=== PATIENT | male | born 1985 | race Two or more races ===

== ENCOUNTER 2024-01-18 17:48 | Emergency (ER) | payer MEDICAID, SELFPAY ==
[2024-01-18 18:11] VITALS: BP 134/93; PULSE 155; RESP 18; TEMP 37.7; O2SAT 97; BMI 32.1
--- NOTE | 2024-01-18 18:11 | EKG_ITS ---
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
--- NOTE | 2024-01-18 18:24 | XR_ITS ---
Examination: PA lateral chest 2 views TECHNIQUE: Upright PA lateral chest 2 views Exam date and time: January 18, 2024 at 1845 hours INDICATIONS: Vertigo today FINDINGS: Normal heart size Lungs are clear. The osseous structures are intact IMPRESSION: No active disease
--- NOTE | 2024-01-18 18:24 | PD.EDRME ---
Rapid Medical Screening Exam RME Arrival date/time: 01/18/24 17:48 38-year-old male with reported past medical history of kidney disease, liver disease, and cardiac problem presents to the emergency department complaining of multiple complaints dizziness, headache, and left calf pain that is been ongoing for several days Chief Complaint: Ear Time Seen by Provider: 01/18/24 18:09 Vital signs: Vital Signs Temperature 99.9 F 01/18/24 18:11 Pulse Rate 155 H 01/18/24 18:11 Respiratory Rate 18 01/18/24 18:11 Blood Pressure 134/93 H 01/18/24 18:11 Pulse Oximetry (%) 97 01/18/24 18:11 Oxygen Delivery Method Room Air 01/18/24 18:11 Vital signs reviewed by provider: Yes
[2024-01-18 18:57] LABS: Collection Type, Urine Clean Catch
[2024-01-18 19:00] LABS: Basophils # (Auto) 0.1 Thou/mm3 (0.0-0.2); Basophils % (Auto) 0 % (0-2.5); Eosinophils # (Auto) 0.1 Thou/mm3 (0.0-0.5); Eosinophils % (Auto) 1 % (0-10); Hematocrit 46.7 % (41.0-53.0); Hemoglobin 15.8 g/dL (13.5-16.0); Immature Granulocytes % (Auto) 0 % (0-0); Immature Granulocytes Auto 0.07 Thou/mm3 (0.00-0.00); Lymphocytes # (Auto) 2.2 Thou/mm3 (1.0-4.8); Lymphocytes % (Auto) 13 % (10-50); Mean Corpuscular HGB Conc 33.8 g/dl (31.0-37.0); Mean Corpuscular Hemoglobin 29.9 pg (25.0-35.0); Mean Corpuscular Volume 88 fL (80-100); Monocytes # (Auto) 0.9 Thou/mm3 (0.0-0.8); Monocytes % (Auto) 6 % (0-12); Neutrophils # (Auto) 13.3 Thou/mm3 (1.8-7.7); Neutrophils % (Auto) 80 % (37-80); Nucleated Red Blood Cell % 0 /100 WBC (0); Platelet Count 254 Thou/mm3 (140-440); RDW Standard Deviation 43.6 fL (35.1-43.9); Red Blood Count 5.28 Miln/mm3 (4.50-5.90); White Blood Count 16.8 Thou/mm3 (3.8-10.6)
[2024-01-18 19:09] LABS: Bacteria,Urine Rare; Bilirubin,Urine Negative (Negative); Blood,Urine Negative (Negative); Clarity,Urine Clear (Clear/Hazy); Color,Urine Lt-Yellow (Lt Yel-Yel); Culture Indicated,Urine Not Indicated; Glucose, Urine 4+ (Negative); Ketones,Urine Negative (Negative); Leukocyte Esterase,Urine Negative (Negative); Nitrite,Urine Negative (Negative); Protein,Urine Negative (Neg - Trace); RBC,Urine 2 /hpf (0-3); Specific Gravity,Urine 1.029 (1.001-1.035); Squamous Epithelial Cell,Urine < 1 /hpf (0-5); Urobilinogen,Urine Negative mg/dL (0.0-1.0); WBC,Urine 1 /hpf (0-5)
[2024-01-18 19:17] LABS: INR 0.9 (0.9-1.3); Partial Thromboplastin Time 26.2 Seconds (22.0-36.0); Prothrombin Time 10.4 Seconds (9.0-12.2)
[2024-01-18 19:20] LABS: B-Type Natriuretic Peptide < 20 pg/mL (0-100)
[2024-01-18 19:20] LABS: Amphetamine/Methamp Scrn,U Negative (Negative); Barbiturate Screen,Urine Negative (Negative); Benzodiazepines Screen,Urine Negative (Negative); Benzoylecgonine Screen, Ur Negative (Negative); Fentanyl Screen,Urine Negative (Negative); Opiate Screen,Urine Negative (Negative); THC Screen,Urine Negative (Negative)
[2024-01-18 19:22] LABS: Alanine Aminotransferase 26 U/L (10-49); Albumin, Serum 4.5 gm/dL (3.5-5.0); Albumin/Globulin Ratio 1.8 (1.2-2.2); Alkaline Phosphatase 210 U/L (46-116); Anion Gap 7 (7-16); Aspartate Amino Transferase 20 U/L (0-34); BUN/Creatinine Ratio 13 Ratio (12-20); Bilirubin,Total 0.3 mg/dL (0.3-1.2); Blood Urea Nitrogen 10 mg/dL (9-23); Calcium 10.1 mg/dL (8.3-10.6); Calcium (Corrected) 10.1 mg/dL (8.5-10.1); Carbon Dioxide 26.8 mMol/L (20.0-31.0); Chloride 102 mMol/L (98-107); Creatinine (Component) 0.8 mg/dL (0.6-1.3); Estimated Creatinine Clearance 136.2 mL/min (>60); Globulin 2.5 gm/dL (2.3-3.5); Glucose 252 mg/dL (74-106); Osmolality,Calculated 279 (275-295); Potassium 4.6 mMol/L (3.4-5.1); Sodium 136 mMol/L (136-145); Troponin I < 0.002 ng/mL (0.0-0.045); eGFR > 60 See Note
--- NOTE | 2024-01-18 20:09 | XR_ITS ---
Examination: CT brain head without contrast. 2-D sagittal coronal reconstructions Date and time of exam:January 18, 2024 2048 hrs. Indications: Vertigo dizziness episodes today CTDI: vol (mGy):53.3 DLP: (mGycm):1056 Technique: Multiple CT axial sections of the brain have been obtained, 5 mm slice thickness. Contrast has not been administered. 2-D sagittal, coronal reconstructions have been obtained Low dose protocols were performed. One or more of the following dose reduction techniques were used; automated exposure control, adjustment of the mA and/or KV according to patient size, use of iterative reconstruction technique. Findings: No significant ventricular enlargement. Intra-axial or extra-axial hemorrhage density is not seen. No mass effect or midline shift Basal cisterns are not remarkable. Fourth ventricle is midline. Cranial vault intact. Impression: Negative for acute hemorrhage, mass effect or midline shift Advise clinical correlation follow-up accordingly
[2024-01-18 20:35] VITALS: BP 134/93; PULSE 155
[2024-01-18] MEDS: METOPROLOL TARTRATE 25 MG TABLET 50 MG PO (20:35)
[2024-01-18 20:47] LABS: D-Dimer < 250 ng/mL (<600)
[2024-01-18 21:11] VITALS: BP 158/96; PULSE 134; RESP 18; TEMP 37.6; O2SAT 99
--- NOTE | 2024-01-18 21:54 | PD.EDFEVER ---
ED Fever RME/HPI General Chief Complaint: Ear Stated Complaint: b/l ear ringinig, feels like room spinning Time Seen by Provider: 01/18/24 18:09 Arrival date/time: 01/18/24 17:48 RME / HPI RME / HPI Narrative: 01/18/24 17:48 38-year-old male with reported past medical history of kidney disease, liver disease, and cardiac problem presents to the emergency department complaining of multiple complaints dizziness, headache, and left calf pain that is been ongoing for several days This section includes all my notes and documentations, including HPI, PE, and ED course. Dennis Mays MD HPI: 38-year-old male here to be evaluated with about a week history of severe sore throat. With severe fever and chills and bodyaches. With ear pain and headache and dizziness. No other complaints. ROS: Respiratory: negative except as documented in HPI. Gastrointestinal: negative except as documented in HPI. Genitourinary: negative except as documented in HPI. Musculoskeletal: negative except as documented in HPI. Skin: negative except as documented in HPI. Neurological: negative except as documented in HPI. Physical Exam: General: Alert and oriented. Appearance of malaise noted. Eyes: Conjunctivae and lids clear. EOMI. PERRL. ENT: No nasal congestion. Pharynx severely erythematous with bilateral tonsillar exudate. Tympanic membrane normal bilaterally. Neck: Supple. No lymphadenopathy. Heart: Sinus tachycardia noted. Lungs: No respiratory distress. Good air movement. No rhonchi, wheezing, rales. Abdomen: Soft and nontender. Back: No CVA tenderness. Legs: No clubbing, cyanosis, edema. Skin: Warm and dry. Neuro: Alert and oriented X 3. Cranial Nerves II-XII grossly intact. No peripheral motor deficits. I reviewed all diagnostic test results (ordered by JACEY at triage). My interpretation of the EKG is sinus rhythm with nonspecific ST-T changes. My interpretation of the chest x-ray is no acute findings. My review of the head CT report is no acute findings. Blood tests and urine tests are unremarkable. At this point, diagnoses include tonsillitis Treatment here included Augmentin and Tylenol and ibuprofen. Significant improvement noted subjectively and objectively. Recommended a trial of outpatient treatment. Based on my best medical judgment, made decision no further evaluation or treatment indicated at this time. Patient understands and agrees to the discharge instructions customized and printed, see below. Discharge Instructions from Dr. Mays printed for you: 1. Take Augmentin to kill the germs causing your tonsillitis. 2. Tylenol 25866 mg alternating with ibuprofen 800 mg every 4 hours today and tomorrow scheduled. Then as needed for fever/pain. 3. Increase oral fluid, your body needs extra when you are sick. Maintain clear urine. If dark or yellow, increase oral fluid 4. See a private doctor on 01/20/2024 for recheck and further care if needed. Ask for help until you are completely better. Ask to review all test results and official radiology reports, to make sure you receive all necessary follow-ups and monitoring. 5. Seek immediate medical care with worsening or with any concerns Dennis Mays MD Related Data Previous Rx's ?Medication ?Instructions ?Recorded amoxicillin 875 mg-potassium 1 tab PO BID #20 tabs 01/18/24 clavulanate 125 mg tablet Allergies Allergy/AdvReac Type Severity Reaction Status Date / Time No Known Allergies Allergy Verified 01/18/24 17:49 Course Quality Measures none Orders Category Date Time Status Family Practice Physician Assistant Q4H START 00 Care 01/18/24 18:27 Active EKG (ED ONLY) *Do not use* NOW Care 01/18/24 18:[address] head/brain wo con Stat Exams 01/18/24 20:09 Completed EKG (ED Only) Stat Exams 01/18/24 18:11 Draft XR chest 2V Stat Exams 01/18/24 18:24 Completed B-Type Natriuretic Peptide Stat Lab 01/18/24 18:40 Completed CBC Stat Lab 01/18/24 18:40 Completed Comprehensive Metabolic Panel Stat Lab 01/18/24 18:40 Completed D-Dimer Stat Lab 01/18/24 18:40 Completed Drug Screen,Urine Stat Lab 01/18/24 18:43 Completed Magnesium Stat Lab 01/18/24 18:40 Completed Partial Thromboplastin Time Stat Lab 01/18/24 18:40 Completed Prothrombin Time with INR Stat Lab 01/18/24 18:40 Completed Troponin I Stat Lab 01/18/24 18:40 Completed Urinalysis, C/S if Indicated Stat Lab 01/18/24 18:43 Completed Acetaminophen Tab [Tylenol Tab] Med 01/18/24 21:23 Discontinued 650 mg PO X1 ONE Amoxicillin/Pot Clav 875 [Augmentin 875] Med 01/18/24 21:23 Discontinued 1 tab PO X1 ONE Ibuprofen Tab [Motrin Tab] Med 01/18/24 21:23 Discontinued 800 mg PO X1 ONE Metoprolol Tartrate [Lopressor] Med 01/18/24 20:09 Discontinued 50 mg PO X1 ONE predniSONE Med 01/18/24 21:23 Discontinued 60 mg PO X1 ONE Vital Signs Vital signs: Vital Signs Temperature 99.9 F 01/18/24 18:11 Pulse Rate 155 H 01/18/24 18:11 Respiratory Rate 18 01/18/24 18:11 Blood Pressure 134/93 H 01/18/24 18:11 Pulse Oximetry (%) 97 01/18/24 18:11 Oxygen Delivery Method Room Air 01/18/24 18:11 Fever Patient data External records reviewed:: None Clinical information provided by:: patient Social determinants that could affect healthcare access:: none Patient has the following chronic illnesses:: None How is presenting disease/condition affected by chronic disease/condition?: no chronic disease Evaluation data The following diagnostics were reviewed and interpreted by me:: lab results, radiology exam(s) and EKG tracing(s) Lab and/or radiology exams considered but not ordered:: None Interpretation Summary: Tonsillitis Medications / Prescriptions Medications or Prescriptions considered but not ordered:: None Medication administrations:: Medication Administration History Discontinued Medications Acetaminophen (Acetaminophen 325 Mg Tablet) 650 mg PO X1 ONE Stop: 01/18/24 21:24 Amoxicillin/Clavulanate Potassium (Amoxicillin/Pot Clav 875 Tablet) 1 tab PO X1 ONE Stop: 01/18/24 21:24 Ibuprofen (Ibuprofen Tab 400 Mg Tablet) 800 mg PO X1 ONE Stop: 01/18/24 21:24 Metoprolol Tartrate (Metoprolol Tartrate 25 Mg Tablet) 50 mg PO X1 ONE Stop: 01/18/24 20:10 Last Admin: 01/18/24 20:35 Dose: 50 mg Documented By: Prednisone (Prednisone 20 Mg Tablet) 60 mg PO X1 ONE Stop: 01/18/24 21:24 Augmentin and prednisone and Tylenol and ibuprofen Consultations Consultation(s) initiated? (list below): No Diagnosis Fever Differential Diagnosis: fever of unknown origin, community acquired pneumonia, viral infection and influenza Most likely diagnosis given after review of the tests above:: Tonsillitis Admission Indicated Admission indicated?: not indicated Explain why admission is indicated or not indicated:: Admission criteria not met Admission Request Was there a request for admission?: No Disposition Plan Disposition Plan: Discharge Discharge Attestation Discharge Attestation: The patient and all family members were given an opportunity to ask questions and understood the discharge instructions. Discharge instructions specifically effects, indications for sooner follow up or return to the emergency department, and the expected course of current diagnosis. Patient condition: Stable Discharge Plan Plan Patient Disposition: HOME (Self Care) Prescriptions/Referrals Prescriptions/Med Rec: New amoxicillin-pot clavulanate 875-125 mg tablet 1 tab PO BID Qty: 20 0RF Referrals: Joe Ramírez PA-C [Primary Care Provider] - In 1 week Problem List Clinical Impression: Acute tonsillitis Patient/Caregiver Discharge Instructions Discharge Activity: activity as tolerated Education Materials: ED Tonsillitis (Child) Additional Instructions: Discharge Instructions from Dr. Mays printed for you: 1. Take Augmentin to kill the germs causing your tonsillitis. 2. Tylenol 21965 mg alternating with ibuprofen 800 mg every 4 hours today and tomorrow scheduled. Then as needed for fever/pain. 3. Increase oral fluid, your body needs extra when you are sick. Maintain clear urine. If dark or yellow, increase oral fluid 4. See a private doctor on 01/20/2024 for recheck and further care if needed. Ask for help until you are completely better. Ask to review all test results and official radiology reports, to make sure you receive all necessary follow-ups and monitoring. 5. Seek immediate medical care with worsening or with any concerns Print Language: [place] Stand Alone Forms: [employer] Award Info., Patient Portal Info Letter
[2024-01-18] MEDS: predniSONE 20 MG TABLET 60 MG PO (22:06)
[2024-01-18] MEDS: ACETAMINOPHEN 325 MG TABLET 650 MG PO (22:06)
[2024-01-18] MEDS: AMOXICILLIN/POT CLAV 875 TABLET 1 TAB PO (22:06)
[2024-01-18] MEDS: IBUPROFEN TAB 400 MG TABLET 800 MG PO (22:06)
== END 2024-01-18 22:11 | disposition home or self-care (01) ==
PROVIDERS: Emergency Provider Emergency Medicine; PCP Physician Assistant
DX: J03.90 Acute tonsillitis, unspecified (principal); R00.0 Tachycardia, unspecified; R42 Dizziness and giddiness
CPT/HCPCS: 36415; 70450; 71046; 80053; 80307; 81001; 83735; 83880; 84484; 85025; 85379; 85610; 85730; 93005; 99284; J7512; A9270

== ENCOUNTER 2024-01-25 21:25 | Emergency (ER) | payer MEDICAID, SELFPAY ==
[2024-01-25 21:26] VITALS: PULSE 140
--- NOTE | 2024-01-25 21:30 | EKG_ITS ---
[facility] Test Date: 2024-01-25 Pat Name: WALKER COFFMAN Department: Room: - Gender: Male [employer]: : 1985 Requested By: ED Temporary Provider Order Number: [id number] Reading MD: ED Temporary Provider Measurements Intervals [place] Rate: 131 P: 30 IA: 151 QRS: 51 QRSD: 81 T: 8 QT: 333 QTc: 492 Interpretive Statements SINUS TACHYCARDIA MODERATE T-WAVE ABNORMALITY, CONSIDER INFERIOR ISCHEMIA [-0.1+ mV T WAVE IN II/aVF] Compared to ECG 01/18/2024 18:16:04 Possible ischemia now present T-wave abnormality still present /store/S0/[id number]/[id number].pdf
[2024-01-25 21:43] VITALS: BP 137/95; PULSE 130; RESP 18; TEMP 36.9; O2SAT 99; BMI 31.3
--- NOTE | 2024-01-25 21:51 | PD.EDRME ---
Rapid Medical Screening Exam RME Arrival date/time: 01/25/24 21:25 38-year-old male past medical history of diabetes presents to the emergency department complaining of palpitations. Patient reports currently on antibiotic for sternal infection. Chief Complaint: Arrhythmia/Palpitations Time Seen by Provider: 01/25/24 21:48 Vital signs: Vital Signs Temperature 98.5 F 01/25/24 21:43 Pulse Rate 130 H 01/25/24 21:43 Respiratory Rate 18 01/25/24 21:43 Blood Pressure 137/95 H 01/25/24 21:43 Pulse Oximetry (%) 99 01/25/24 21:43 Oxygen Delivery Method Room Air 01/25/24 21:43 Vital signs reviewed by provider: Yes
--- NOTE | 2024-01-25 21:52 | XR_ITS ---
Examination: PA lateral chest 2 views Technique: Upright PA lateral chest 2 views Exam date and time: January 25, 2024 10:17 PM Indications: Onset chest pain today Findings: Normal heart size No pneumonia or pulmonary edema Intact osseous structures Impression: No pneumonia or pulmonary edema
[2024-01-25 22:20] LABS: Lactate (Lactic Acid) 1.2 mMol/L (0.4-2.0)
[2024-01-25 22:36] LABS: Basophils % (Auto) 0 % (0-2.5); Eosinophils # (Auto) 0.1 Thou/mm3 (0.0-0.5); Eosinophils % (Auto) 1 % (0-10); Hematocrit 46.9 % (41.0-53.0); Hemoglobin 15.6 g/dL (13.5-16.0); Immature Granulocytes % (Auto) 1 % (0-0); Immature Granulocytes Auto 0.09 Thou/mm3 (0.00-0.00); Lymphocytes # (Auto) 2.5 Thou/mm3 (1.0-4.8); Lymphocytes % (Auto) 18 % (10-50); Mean Corpuscular HGB Conc 33.3 g/dl (31.0-37.0); Mean Corpuscular Hemoglobin 29.6 pg (25.0-35.0); Mean Corpuscular Volume 89 fL (80-100); Monocytes # (Auto) 0.8 Thou/mm3 (0.0-0.8); Monocytes % (Auto) 6 % (0-12); Neutrophils # (Auto) 10.3 Thou/mm3 (1.8-7.7); Neutrophils % (Auto) 75 % (37-80); Nucleated Red Blood Cell % 0 /100 WBC (0); Platelet Count 245 Thou/mm3 (140-440); RDW Standard Deviation 43.5 fL (35.1-43.9); Red Blood Count 5.27 Miln/mm3 (4.50-5.90); White Blood Count 13.8 Thou/mm3 (3.8-10.6)
[2024-01-25 22:44] LABS: Partial Thromboplastin Time 26.2 Seconds (22.0-36.0); Prothrombin Time 10.6 Seconds (9.0-12.2)
[2024-01-25 22:56] LABS: B-Type Natriuretic Peptide < 20 pg/mL (0-100)
[2024-01-25 23:02] LABS: Collection Type, Urine Clean Catch; Squamous Epithelial Cell,Urine 0 /hpf (0-5)
[2024-01-25 23:03] LABS: Alanine Aminotransferase 21 U/L (10-49); Albumin, Serum 4.7 gm/dL (3.5-5.0); Albumin/Globulin Ratio 1.9 (1.2-2.2); Alkaline Phosphatase 205 U/L (46-116); Anion Gap 7 (7-16); Aspartate Amino Transferase 13 U/L (0-34); BUN/Creatinine Ratio 14 Ratio (12-20); Bilirubin,Total 0.3 mg/dL (0.3-1.2); Blood Urea Nitrogen 11 mg/dL (9-23); Calcium 9.7 mg/dL (8.3-10.6); Calcium (Corrected) 9.7 mg/dL (8.5-10.1); Carbon Dioxide 26.1 mMol/L (20.0-31.0); Chloride 106 mMol/L (98-107); Creatinine (Component) 0.8 mg/dL (0.6-1.3); Estimated Creatinine Clearance 134.5 mL/min (>60); Globulin 2.5 gm/dL (2.3-3.5); Glucose 109 mg/dL (74-106); Magnesium 2.2 mg/dL (1.6-2.6); Osmolality,Calculated 277 (275-295); Potassium 4.5 mMol/L (3.4-5.1); Procalcitonin 0.04 ng/ml (0.0-0.49); Sodium 139 mMol/L (136-145); Total Protein 7.2 gm/dL (5.7-8.2); Troponin I < 0.002 ng/mL (0.0-0.045); eGFR > 60 See Note
[2024-01-25 23:18] LABS: Amphetamine/Methamp Scrn,U Negative (Negative); Barbiturate Screen,Urine Negative (Negative); Benzodiazepines Screen,Urine Negative (Negative); Benzoylecgonine Screen, Ur Negative (Negative); Fentanyl Screen,Urine Negative (Negative); Opiate Screen,Urine Negative (Negative); THC Screen,Urine Negative (Negative)
[2024-01-25 23:20] LABS: Bacteria,Urine Rare; Bilirubin,Urine Negative (Negative); Blood,Urine Negative (Negative); Clarity,Urine Clear (Clear/Hazy); Color,Urine Lt-Yellow (Lt Yel-Yel); Glucose, Urine 4+ (Negative); Ketones,Urine Negative (Negative); Leukocyte Esterase,Urine Negative (Negative); Nitrite,Urine Negative (Negative); Protein,Urine Trace (Neg - Trace); RBC,Urine 4 /hpf (0-3); Specific Gravity,Urine 1.031 (1.001-1.035); WBC,Urine 1 /hpf (0-5)
[2024-01-25 23:52] VITALS: BP 139/103; PULSE 120; RESP 18; TEMP 36.9; O2SAT 98
[2024-01-26 00:16] VITALS: PULSE 114
--- NOTE | 2024-01-26 00:19 | EDNOTE_ITS ---
ED Arrhythmia Palp. RME/HPI General Chief Complaint: Arrhythmia/Palpitations Stated Complaint: PALPITATIONS Time Seen by Provider: 01/25/24 21:48 Source: patient and EMS Arrival date/time: 01/25/24 21:25 Mode of arrival: EMS Limitations: no limitations RME / HPI RME / HPI narrative: 01/25/24 21:25 38-year-old male past medical history of diabetes presents to the emergency department complaining of palpitations. Patient reports currently on antibiotic for sternal infection. DR ANGUIANO MAIN ED EVALUATION: 38-year-old male with a history of hypertension and diabetes presents to the emergency department via ambulance for evaluation of palpitations. Per EMS, his heart rate was 140 bpm on scene. The patient denies any prior episodes of similar symptoms or additional complaints, including chest pain, dyspnea, dizziness, or other associated symptoms. Related Data Previous Rx's ?Medication ?Instructions ?Recorded amoxicillin 875 mg-potassium 1 tab PO BID #20 tabs 01/18/24 clavulanate 125 mg tablet Allergies Allergy/AdvReac Type Severity Reaction Status Date / Time No Known Allergies Allergy Verified 01/18/24 17:49 Review of Systems Review of Systems Systems Reviewed: All systems reviewed, normal except as documented Past Medical History Past Medical History CARDIAC: Positive Cardiac Disorders, Hypercholesterolemia and Hypertension; Negative Congestive Heart Failure RESPIRATORY: Negative Chronic Obstructive Pulmonary Disease (COPD) GENITOURINARY: Negative Renal Disease ENDOCRINE: Positive Endocrine Disorders and Diabetes Mellitus Type 2; Negative Diabetes Mellitus Type 1 Social History SMOKING STATUS: Never smoker ED Exam Narrative Physical exam: GENERAL APPEARANCE: alert and oriented x 4, well-developed, well-nourished, no acute distress VITALS: All vitals were reviewed and the pulse ox is % on room air, which is normal according to my interpretation. HEENT: Normocephalic, atraumatic; pupils equal, round, reactive to light; EOMI; mucous membranes pink, moist; oropharynx clear NECK: Supple LUNGS: CTABL; no wheezes, no rales, no rhonchi HEART: Regular rate, regular rhythm; normal S1, S2; no murmurs ABDOMEN: non distended; normal BS; soft, no tenderness, no guarding, no rebound; no masses, no organomegaly, no hernia BACK: no CVA tenderness EXTREMITIES: atraumatic; no edema NEUROLOGIC: awake; alert and oriented x4; cranial nerves II-XII grossly intact; no focal sensory or motor deficits PSYCHIATRIC: appropriate mood and affect SKIN: warm, dry, normal color; no rashes General Limitations: Present no limitations Course Quality Measures none Orders Category Date Time Status EKG (ED ONLY) *Do not use* NOW Care 01/25/24 21:31 Completed EKG (ED Only) Stat Exams 01/25/24 21:30 Draft XR chest 2V Stat Exams 01/25/24 21:52 Completed B-Type Natriuretic Peptide Stat Lab 01/25/24 22:12 Completed CBC Stat Lab 01/25/24 22:12 Completed Comprehensive Metabolic Panel Stat Lab 01/25/24 22:12 Completed Drug Screen,Urine Stat Lab 01/25/24 22:18 Completed Lactate (Lactic Acid) Stat Lab 01/25/24 22:12 Completed Magnesium Stat Lab 01/25/24 22:12 Completed Partial Thromboplastin Time Stat Lab 01/25/24 22:12 Completed Procalcitonin Stat Lab 01/25/24 22:12 Completed Prothrombin Time with INR Stat Lab 01/25/24 22:12 Completed Troponin I Stat Lab 01/25/24 22:12 Completed Urinalysis Stat Lab 01/25/24 22:18 Completed Vital Signs Vital signs: Vital Signs Temperature 98.5 F 01/25/24 21:43 Pulse Rate 130 H 01/25/24 21:43 Respiratory Rate 18 01/25/24 21:43 Blood Pressure 137/95 H 01/25/24 21:43 Pulse Oximetry (%) 99 01/25/24 21:43 Oxygen Delivery Method Room Air 01/25/24 21:43 Procedures -ED Procedure Comment EKG manual reading, 01/25/24 2142 hours, my interpretation: sinus tachycardia, rate: 131 bpm, no ST elevation, no acute ischemic changes, interpreted as normal Arrhythmia/Palpitations MDM Narrative MDM Narrative:: Scribe Attestation: I, Krystal Snow, am scribing for and in the presence of Dr. Anguiano. Provider Notation: Although this document has been carefully reviewed, there may still be some phonetic and other typographical errors. These errors are purely grammatical due to imperfections in the software program and should not be construed in any way to compromise the substance of the patient's medical care during this visit. Patient data External records reviewed:: [facility] previous records Clinical information provided by:: patient Social determinants that could affect healthcare access:: none Patient has the following chronic illnesses:: Hypercholesterolemia and Hypertension; Diabetes Mellitus Type 2; How is presenting disease/condition affected by chronic disease/condition?: uneffected by Evaluation data The following diagnostics were reviewed and interpreted by me:: lab results, radiology exam(s) and EKG tracing(s) Lab and/or radiology exams considered but not ordered:: n/a Interpretation Summary: I personally reviewed the radiology data and agree with the radiologist's interpretation. Examination: PA lateral chest 2 views Technique: Upright PA lateral chest 2 views Exam date and time: January 25, 2024 10:17 PM Indications: Onset chest pain today Findings: Normal heart size No pneumonia or pulmonary edema Intact osseous structures Impression: No pneumonia or pulmonary edema Dictated By: Marcus Soto MD Medications / Prescriptions Medications or Prescriptions considered but not ordered:: n/a Medication administrations:: as above, if any Consultations Consultation(s) initiated? (list below): No Diagnosis Differential diagnosis arrhythmia/palpitations: palpitations, anxiety, sinus tachycardia and artial fibrillation Most likely diagnosis given after review of the tests above:: Sinus tachycardia Admission Indicated Admission indicated?: not indicated Admission Request Was there a request for admission?: No Disposition Plan Disposition Plan: Discharge Discharge Attestation Discharge Attestation: The patient and all family members were given an opportunity to ask questions and understood the discharge instructions. Discharge instructions specifically effects, indications for sooner follow up or return to the emergency department, and the expected course of current diagnosis. Patient condition: Stable Discharge Plan Plan Patient Disposition: HOME (Self Care) Prescriptions/Referrals Prescriptions/Med Rec: No Action amoxicillin-pot clavulanate 875-125 mg tablet 1 tab PO BID Qty: 20 0RF Referrals: Maria Guadalupe Lee PA-C ([facility]) [Primary Care Provider] - In 1 week Problem List Clinical Impression: Sinus tachycardia Patient/Caregiver Discharge Instructions Education Materials: Understanding Tachycardia Print Language: Citizen Of [place] Stand Alone Forms: [employer] Award Info., Patient Portal Info Letter
[2024-01-26 00:24] VITALS: BP 154/99; PULSE 114; RESP 20; O2SAT 98
== END 2024-01-26 00:26 | disposition home or self-care (01) ==
PROVIDERS: Emergency Provider Emergency Medicine; PCP Nurse Practitioner Family
DX: R00.0 Tachycardia, unspecified (principal); R07.9 Chest pain, unspecified; E78.00 Pure hypercholesterolemia, unspecified; I10 Essential (primary) hypertension
CPT/HCPCS: 36415; 71046; 80053; 80307; 81001; 83605; 83735; 83880; 84145; 84484; 85025; 85610; 85730; 93005; 99283

== ENCOUNTER → 2024-02-18 | Outpatient (CLI) | payer MEDICAID, SELFPAY ==
--- NOTE | 2024-02-18 10:00 | XR_ITS ---
Examination: SAMANTHA, hepatobiliary radioisotope scan Gallbladder ejection fraction study. Date and time of exam: February 18, 2024 0941 hours INDICATIONS: Abdominal pain 3 years with nausea vomiting constipation diarrhea elevated liver function tests Technique: 6.0 mCi of 99M Hepatolite administered. Serial imaging then obtained from immediate through 60 minutes. 1.8 mcg selective catheter Kinevac administered for gallbladder ejection fraction study. Findings: Radioisotope activity within the liver is reasonably homogenous. Gallbladder, common bile duct small bowel activity noted Impression: Gallbladder activity Abnormal gallbladder ejection fraction, 17%, normal greater than 35%
== END | disposition home or self-care (01) ==
PROVIDERS: Referring Provider Nurse Practitioner Family; Visit Provider Nurse Practitioner Family
DX: R93.89 Abnormal findings on diagnostic imaging of other specified body structures (principal)
CPT/HCPCS: 78226; A9537; J2805

== ENCOUNTER 2024-04-19 16:04 | Emergency (ER) | payer MEDICAID, SELFPAY ==
[2024-04-19 16:05] VITALS: BMI 32.8
--- NOTE | 2024-04-19 16:13 | PD.EDBACK ---
ED Back Injury Pain RME/HPI General Chief Complaint: Back Pain/Injury Stated Complaint: Lower back pain with GLF last night Time Seen by Provider: 04/19/24 16:10 Arrival date/time: 04/19/24 16:04 RME / HPI RME / HPI Narrative: This section includes all my notes and documentations, including HPI, PE, and ED course. Dennis Mays MD HPI: 38-year-old male here to be evaluated with severe low back pain. Started after falling at home last night. He had a mechanical fall after slipping. He landed on his buttocks. He reports severe and sharp pain. Worse with certain movement. No radiation into the legs. No numbness or tingling. No paralysis in the lower extremities. No loss of control of bladder or bowels. No saddle numbness. No other complaints. ROS: All negative except as documented in HPI. Physical Exam: General: Alert and oriented. No acute distress when remaining still. Eyes: Conjunctivae and lids clear. ENT: No nasal congestion. Neck: Supple. Lungs: No respiratory distress. Back: Midline tenderness in the lumbar region. Skin: Warm and dry. Neuro: Alert and oriented X 3. No peripheral motor deficits in the lower extremities. I ordered lumbar spine CT. At 6 PM on 04/19/2024, the care of the patient was transferred to the night physician. Dennis Mays MD Related Data Previous Rx's ?Medication ?Instructions ?Recorded amoxicillin 875 mg-potassium 1 tab PO BID #20 tabs 01/18/24 clavulanate 125 mg tablet Allergies Allergy/AdvReac Type Severity Reaction Status Date / Time No Known Allergies Allergy Verified 01/18/24 17:49 Course Quality Measures none Orders Category Date Time Status CT lumbar spine wo con Stat Exams 04/19/24 16:14 Taken Vital Signs Vital signs: Vital Signs Temperature 98.6 F 04/19/24 16:26 Pulse Rate 106 H 04/19/24 16:26 Respiratory Rate 18 04/19/24 16:26 Blood Pressure 144/89 H 04/19/24 16:26 Pulse Oximetry (%) 98 04/19/24 16:26 Oxygen Delivery Method Room Air 04/19/24 16:26 Back Pain / Injury Patient data External records reviewed:: [facility] [place] previous records Clinical information provided by:: patient Social determinants that could affect healthcare access:: none Patient has the following chronic illnesses:: None How is presenting disease/condition affected by chronic disease/condition?: no chronic disease Evaluation data The following diagnostics were reviewed and interpreted by me:: other (specify) (Diagnostic tests pending) Lab and/or radiology exams considered but not ordered:: None Interpretation Summary: Diagnostic tests pending Medications / Prescriptions Medications or Prescriptions considered but not ordered:: None Medication administrations:: None Consultations Consultation(s) initiated? (list below): No Diagnosis Differential diagnosis back pain/injury: lumbar radiculopathy, sciatica, strain of lumbar region and other (Lumbar spine fracture) Most likely diagnosis given after review of the tests above:: Diagnostic test pending Admission Indicated Admission indicated?: not indicated Explain why admission is indicated or not indicated:: Diagnostic test pending Admission Request Was there a request for admission?: No Disposition Plan Disposition Plan: other (specify) (Care of the patient was transferred to the night physician.) Discharge Plan Prescriptions/Referrals Prescriptions/Med Rec: No Action amoxicillin-pot clavulanate 875-125 mg tablet 1 tab PO BID Qty: 20 0RF Referrals: Maria Guadalupe Lee PA-C ([facility]) [Primary Care Provider] - In 1 week Problem List Clinical Impression: Low back pain Patient/Caregiver Discharge Instructions Print Language: Luxembourgish
--- NOTE | 2024-04-19 16:14 | XR_ITS ---
Examination: CT lumbar spine, without contrast. 2-D sagittal reconstructions. 2-D coronal reconstructions. 3-D reconstructions. Date and time of exam:April 19, 2024 1648 hrs. Indications: Ground-level fall last night with injury to lower back, lower back pain CTDI: vol (mGy):26.1 DLP: (mGycm):826 Technique: Multiple 1.25 mm axial sections of the lumbar spine without intravenous contrast have been obtained. 2-D sagittal and coronal reconstructions have been obtained. 3-D reconstructions have been obtained. Low dose protocols were performed. One or more of the following dose reduction techniques were used; automated exposure control, adjustment of the mA and/or KV according to patient size, use of iterative reconstruction technique. Findings: Adequate alignment lumbar vertebral bodies Acute compression fracture L1 vertebral body, mild to moderate depression superior endplate Adequate alignment of this vertebral body L5-S1 4 mm left first central disc bulge contiguous with bulges S1 nerve roots L4-L5 3 mm central lumbar disc bulge Impression: Mild to moderate acute fracture L1 vertebral body
[2024-04-19 16:26] VITALS: BP 144/89; PULSE 106; RESP 18; TEMP 37; O2SAT 98; BMI 32.8
--- NOTE | 2024-04-19 19:05 | PRELIM_ITS ---
CT scan of the lumbar spine without intravenous contrast (axial sections with sagittal and coronal reformats) April 19, 2024 1648 hours Clinical History: LBP after trauma Comparison: No prior study is available for comparison. Findings: Acute appearing superior endplate compression fracture of L1 vertebral body noted with about 20%-30% reduction in vertebral body height. The remainder of the vertebral body height and intervertebral disc spaces are normal. The soft tissues are unremarkable. Impression: Acute appearing superior endplate compression fracture of L1 vertebral body with about 20%-30% reduction in vertebral body height. Discussion Details: Results verbally communicated to : Dr. Morales at 06:56 PM 04/19/2024 Report Electronically Signed By: Fred Johnson 04/19/2024 7:04:55 PM [EST]
--- NOTE | 2024-04-19 19:13 | PD.EDADDENDU ---
Emergency Room Addendum Addendum Narrative: 1800: Care assumed from Dr. Mays, the previous shift emergency physician. Past medical, surgical, social and family history reviewed. Vitals and home medications reviewed. I will assume the care of the patient at this time. Please refer to the emergency department record for history and examination from initial visit.? Physical exam by me shows patient under no acute distress at this time. No neurological deficits. FROM of all 4 extremities with symmetrical strength. 5/5. Normal sensation to touch. 2150: Patient remains clinically stable throughout the emergency department visit. Re-assessment at the time of disposition demonstrates that the patient is in no acute distress. We reviewed all the results, analysis, and treatment plans. Patient is amenable to discharge. Strict return precautions were outlined. Patient was discharged in stable condition. Differential diagnosis: Likely lumbar fracture, sciatica, strain of lumbar region. Most likely diagnosis given after review of the tests above: Low back pain, compression fracture of L1 vertebra. RADIOLOGY Procedure(s): CT lumbar spine wo con Accession Number(s): [id number] cc: Jesus(Chetna)Maria Guadalupe PA-C; Dennis Mays MD; Marcus Soto MD~ Examination: CT lumbar spine, without contrast. 2-D sagittal reconstructions. 2-D coronal reconstructions. 3-D reconstructions. Date and time of exam:April 19, 2024 1648 hrs. Indications: Ground-level fall last night with injury to lower back, lower back pain CTDI: vol (mGy):26.1 DLP: (mGycm):826 Technique: Multiple 1.25 mm axial sections of the lumbar spine without intravenous contrast have been obtained. 2-D sagittal and coronal reconstructions have been obtained. 3-D reconstructions have been obtained. Low dose protocols were performed. One or more of the following dose reduction techniques were used; automated exposure control, adjustment of the mA and/or KV according to patient size, use of iterative reconstruction technique. Findings: Adequate alignment lumbar vertebral bodies Acute compression fracture L1 vertebral body, mild to moderate depression superior endplate Adequate alignment of this vertebral body L5-S1 4 mm left first central disc bulge contiguous with bulges S1 nerve roots L4-L5 3 mm central lumbar disc bulge Impression: Mild to moderate acute fracture L1 vertebral body Dictated By: Marcus Soto MD
[2024-04-19 20:30] VITALS: BP 142/93; PULSE 111; RESP 18; TEMP 36.8; O2SAT 100
[2024-04-19] MEDS: HYDROcodone/APAP 10/325 TAB PO (21:56)
[2024-04-19] MEDS: LIDOCAINE 5% 1 PATCH TOP (21:59)
[2024-04-19 22:16] VITALS: RESP 16
== END 2024-04-19 22:17 | disposition home or self-care (01) ==
PROVIDERS: Emergency Provider Emergency Medicine; PCP Nurse Practitioner Family
DX: M54.50 Low back pain, unspecified (principal); W01.0XXA Fall on same level from slipping, tripping and stumbling without subsequent striking against object, initial encounter; Y92.009 Unspecified place in unspecified non-institutional (private) residence as the place of occurrence of the external cause
CPT/HCPCS: 72131; 99284; Z7610; A9270

== ENCOUNTER → 2024-07-26 | Outpatient (BNVA) | payer MEDICAID, SELFPAY | END | disposition home or self-care (01) | PROVIDERS: Visit Provider Urology | DX: N40.1 Benign prostatic hyperplasia with lower urinary tract symptoms (principal); N13.8 Other obstructive and reflux uropathy; I10 Essential (primary) hypertension; E11.9 Type 2 diabetes mellitus without complications; E78.00 Pure hypercholesterolemia, unspecified | CPT/HCPCS: 81003; 99212; G0463 ==

== ENCOUNTER 2024-09-20 14:30 | Outpatient (RCR) | payer MEDICAID, SELFPAY ==
--- NOTE | 2024-08-30 14:14 | PT.OIERPT ---
PT OP Initial Eval Patient Information Outpatient Physical Therapy Treatment Date: 08/30/24 Visit Reasons: BACK PAIN Medical Diagnosis: M54.16 M54.51 M51.360 Treatment Dx #1: LBP Start of Care: 08/30/24 Date of Onset: March Smoking Status Smoking Status: Never smoker Initial Assessment Subjective: Pt is 38 yr old male here with [employer] worker s/p fall in the shower onto his backside in March. Pt reports pain in tailbone region that doesn't radiate down the LE's. The pain limits prolonged sitting and bending to tie shoes. PMH: HTN, DM, tachycardia Imaging: CT scan L5-S1 4 mm left first central disc bulge contiguous with bulges S1 nerve roots, L4-L5 3 mm central lumbar disc bulge, Mild to moderate acute fracture L1 vertebral body Pt goal: less pain Objective: Trunk ArOM: ? B SB 50% of normal with pain ? Extension: 20% with pain around L4-5, L5-S1 ? Flexion: 10 from floor with LBP ? B rotation: 60% with pain ? R SLR ROM: 45 deg. L SLR: 50 deg with posterior knee neural tension, LBP ? TTP: moderate paraspinals L5-S1 ? Core activation: 3+/5 with resisted LTR Assessment: Pt presents with trunk flexion sensitivity consistent with referring Dx of L1 compression FX. Pt requires skilled therapy in order to decrease ? pain and meet goals and has fair rehab potential. Short Term and Direct Care Supervisor Goals ? 1. Ind with HEP ? 2. Improved core activation to at least 4/5 ? 3. Decreased lower paraspinal TTP from mod to min 4. Improved trunk flexion to 50% of full Treatment Plan ? 1. Manual therapy ? 2. Therex? 3. Modalities as indicated, moist heat, ice, estim Frequency and Duration: 1-2x a week for 8 visits plus the evaluation Certification Dates: 08/30/24 to 11/29/24 Procedure Charges OP PT Eval Mod Complex 30 minutes: Yes
--- NOTE | 2024-09-06 18:55 | PT.ODAYNRPT ---
PT Outpatient Daily Note OP Daily Note Outpatient Physical Therapy Treatment Date: 09/06/24 Visit Reasons: BACK PAIN Subjective: Low pain today in the L/S Objective: See F/S for therex MT: [facility] L/S x5' Assessment: Low pain in L/S in prone extension position Plan: Continue per POc Length of Time (minutes) of Treatment: 30 Minutes Procedure Charges Therapeutic Exercise 30 minutes: Yes
--- NOTE | 2024-09-13 15:29 | PTNOTE_ITS ---
PT Outpatient Daily Note OP Daily Note Outpatient Physical Therapy Treatment Date: 09/13/24 Visit Reasons: BACK PAIN Subjective: Low pain today in the L/S Objective: See F/S for therex MT: [facility] L/S x5' Assessment: More pain in L/S in prone extension position today Plan: Continue per POC Length of Time (minutes) of Treatment: 30 Minutes Procedure Charges Therapeutic Exercise 30 minutes: Yes
--- NOTE | 2024-09-20 15:00 | PT.ODAYNRPT ---
PT Outpatient Daily Note OP Daily Note Outpatient Physical Therapy Treatment Date: 09/20/24 Visit Reasons: BACK PAIN Subjective: Pt c/o LBP today feels it is more tender. Objective: Please see flow sheet for ther ex list. Assessment: Pt guarded during STM on R lumbar region due to pain response. Plan: Continue with POC. Length of Time (minutes) of Treatment: 30 Minutes Procedure Charges Therapeutic Exercise 30 minutes: Yes
== END 2024-09-22 23:59 | disposition home or self-care (01) ==
LOC: CPTX 14:30
PROVIDERS: PCP Orthopaedic Surgery Orthopaedic Surgery of the Spine; Referring Provider Orthopaedic Surgery Orthopaedic Surgery of the Spine; Visit Provider Orthopaedic Surgery Orthopaedic Surgery of the Spine
DX: M54.16 Radiculopathy, lumbar region (principal); M51.360 Other intervertebral disc degeneration, lumbar region with discogenic back pain only; I10 Essential (primary) hypertension; E11.9 Type 2 diabetes mellitus without complications
CPT/HCPCS: 97110; 97162

== ENCOUNTER 2024-10-10 15:00 | Outpatient (RCR) | payer MEDICAID, SELFPAY ==
--- NOTE | 2024-09-26 15:51 | PT.ODAYNRPT ---
PT Outpatient Daily Note OP Daily Note Outpatient Physical Therapy Treatment Date: 09/26/24 Visit Reasons: Back pain Subjective: No new complaints. Objective: Please see flow sheet for ther ex list. Assessment: Pt instructed on PPT exercise for abdominal recruitment, WHEEL ROLLER gave pt feedback for direction to move using hands for feedback on l/s. After a couple attempts pt able to perform with improved technique. Plan: Continue with POC. Length of Time (minutes) of Treatment: 30 Minutes Procedure Charges Therapeutic Exercise 30 minutes: Yes
--- NOTE | 2024-10-04 16:00 | PT.ODAYNRPT ---
PT Outpatient Daily Note OP Daily Note Outpatient Physical Therapy Treatment Date: 10/04/24 Visit Reasons: Back pain Subjective: Pt reports back has been feeling better these last few days, no pain. Objective: Please see flow sheet for ther ex list. Assessment: Pt required verbal, tactile cues and demonstration to perform added interventions with good technique. Plan: Continue with pOC. Length of Time (minutes) of Treatment: 30 Minutes Procedure Charges Therapeutic Exercise 30 minutes: Yes
--- NOTE | 2024-10-10 18:00 | PT.ODS1RPT ---
PT OP Progress/Discharge Note Date of Service: 10/10/24 Progress Note/DC Note Progress Note/Discharge Note: DC Note Patient Information Visit Reasons: Back pain Service Continue Service or Discharge: Discharge Discharge Date: 10/10/24 Status Subjective: The back isn't hurting anymore and he is prepared to D/C from therapy Objective: See F/S for therex Trunk AROM: FB: 10 from floor Extension: 30% of full TTP min to none of lumbar paraspinals Core activation: 4/5 Assessment: Pt has attended the eval and 07/31 Rx sessions with good progress to meet goals. He is independent with HEP and has improved core activation to at least 4/5, decreased lower paraspinal TTP from mod to none and improved trunk flexion to 50% of full without pain to meet those goals. Plan: D/C with HEP Procedure Charges Therapeutic Exercise 30 minutes: Yes
== END 2024-10-23 23:59 | disposition home or self-care (01) ==
LOC: CPTX 15:00
PROVIDERS: PCP Orthopaedic Surgery Orthopaedic Surgery of the Spine; Referring Provider Orthopaedic Surgery Orthopaedic Surgery of the Spine; Visit Provider Orthopaedic Surgery Orthopaedic Surgery of the Spine
DX: M54.16 Radiculopathy, lumbar region (principal); M51.360 Other intervertebral disc degeneration, lumbar region with discogenic back pain only; I10 Essential (primary) hypertension; E11.9 Type 2 diabetes mellitus without complications
CPT/HCPCS: 97110